=== PATIENT | male | born 1960 | race Caucasian/White ===

== ENCOUNTER 2024-04-12 07:19 | Emergency (ER) | payer MEDICARE ==
[2024-04-12] MEDS ORDERED: KETOROLAC 30 MG/ML INJ ONE (07:44)
[2024-04-12] MEDS ORDERED: ONDANSETRON 4 MG/2 ML VIAL ONE (07:44)
[2024-04-12] MEDS ORDERED: MORPHINE 4 MG/ML SYR ONE (07:44)
[2024-04-12 08:11] LABS: Absolute Basophils 0.1 K/uL (0-0.5); Absolute Eosinophils 0.1 K/uL (0-0.5); Absolute Lymphocytes (CBC) 0.9 K/uL (0.7-4.9); Absolute Monocytes 0.4 K/uL (0.1-1.3); Absolute Neutrophil 5.7 K/uL (1.8-8.0); Basophils % 1.9 % (0-1.3); Hemoglobin 14.4 g/dL (13.6-17.9); Lymphocytes % 11.9 % (15.3-44.8); MCH 29.5 pg (27.0-35.0); MCHC 35.2 g/dL (32.0-36.0); MCV 83.8 fL (80-100); Monocytes % 5.3 % (3.3-12.3); Neutrophils % 79.9 % (41.7-73.7); Nucleated Red Blood Cells % 0.2 % (0-0); Platelets 147 thou/uL (152-406); RBC Red Blood Cell Count 4.88 M/uL (4.33-5.43); Red Cell Distribution Width 14.1 % (12.1-15.2)
[2024-04-12 08:24] LABS: Albumin 4.8 g/dL (3.4-5.0); Albumin/Globulin Ratio 1.5 (1.1-1.8); Anion Gap 7.1 mEq/L (5.0-15.0); Bilirubin Total 0.8 mg/dL (0.2-1.0); Globulin 3.2 g/dL (2.3-3.5); Potassium 4.1 mEq/L (3.5-5.1)
[2024-04-12 08:41] LABS: Specific Gravity 1.015 (1.005-1.030); Sqamous Epithelial <5 /HPF (None Seen); Urine Bacteria None Seen /HPF (<20); Urine Bilirubin NEGATIVE (Negative); Urine Blood Negative (Negative); Urine Clarity Clear (Clear); Urine Color Light-Yellow (Yellow); Urine Culture Reflex Order NOT NEEDED; Urine Glucose NEGATIVE (Negative); Urine Ketones NEGATIVE (Negative); Urine Micro Reflex YN NO BILL MICROSCOPIC; Urine Mucus Slight /HPF (None Seen); Urine Nitrite NEGATIVE (Negative); Urine Protein TRACE (Negative); Urine RBC <5 /HPF (None Seen); Urine Urobilinogen Normal (Normal); Urine WBC <5 /HPF (<5)
--- NOTE | 2024-04-12 09:22 | RAD REPORT ---
EXAMINATION: Abdomen Pelvis Wo Contrast CLINICAL INDICATION: Male, 64 years old. ABD PAIN TECHNIQUE: CT abdomen and pelvis was performed, without IV contrast, as per department protocol. Axia l, sagittal and coronal reconstructions were obtained. One or more of the following dose reduction techniques were used: Automated exposure control, adjustment of the mA and kV according to the patien t size, and iterative reconstruction. Unless otherwise specified, incidental findings do not require dedicated imaging follow-up. COMPARISON: No prior exam. FINDINGS: The lack of intravenous contrast limits the sensitivity of this exam for evaluation of solid visceral organs, vascular structures, and retroperitoneum. LOWER CHEST: The visualized lung bases are clear. LIVER: Normal in size and contour. No focal lesion. BILIARY SYSTEM: No suspicious abnormalities. SPLEEN: Normal size. No focal lesion. PANCREAS: No mass, ductal dilation, or tomeka-pancreatic fluid. ADRENALS: Normal; no mass. KIDNEYS AND URETERS: Normal size and contour. Exophytic left interpolar 8.5 x 7.2 cm cyst with region al wall calcifications inferiorly. No hydronephrosis. URINARY BLADDER: Normal contour. GASTROINTESTINAL TRACT: No evidence of bowel obstruction, significant free fluid, free air or abscess . APPENDIX: Normal appendix. LYMPH NODES: No lymphadenopathy. MUSCULOSKELETAL: No acute or suspicious osseous abnormality. ADDITIONAL FINDINGS: Moderate prostatomegaly. IMPRESSION: No acute or concerning abnormalities in the abdomen or pelvis, with evaluation limited by lack of IV contrast. Left renal 8.5 cm cyst, likely benign in appearance. Moderate prostatomegaly.
--- NOTE | 2024-04-12 09:29 | ER ---
Nurse's Notes [facility] Name: Acosta Mays Age: 64 yrs Sex: Male : 1960 Arrival Date: 04/12/2024 Time: 07:19 Bed 6 Private MD: Diagnosis: Renal Cyst Presentation: 04/12 07:33 Chief complaint: Patient states: he has been having ongoing left kidney pain for ap3 months, however the pain as gotten worse over the last 2 weeks. patient reports the pain is currently a 6/10 on the pain scale. patient denies any nausea or vomiting at this time associated with the pain. Coronavirus screen: At this time, the client does not indicate any symptoms associated with coronavirus-19. Ebola Screen: No symptoms or risks identified at this time. Initial Sepsis Screen: Does the patient meet any 2 criteria? HR > 90 bpm. Does the patient have a suspected source of infection? No. Patient's initial sepsis screen is negative. Risk Assessment: Do you want to hurt yourself or someone else? Patient reports no desire to harm self or others. Onset of symptoms is unknown. 07:33 Method Of Arrival: Ambulatory ap3 07:33 Acuity: BRYCE 3 ap3 Triage Assessment: 07:37 General: Appears in no apparent distress. Behavior is calm, cooperative, appropriate ap3 for age. Pain: Complains of pain in left low back Pain currently is 6 out of 10 on a pain scale. Pain began gradually. Neuro: Level of Consciousness is awake, alert, obeys commands, Oriented to person, place, time, situation, Appropriate for age. Cardiovascular: Patient's skin is warm and dry. Respiratory: Airway is patent Respiratory effort is even, unlabored, Respiratory pattern is regular, symmetrical. : Reports pain in left flank(s). Historical: - Allergies: 07:35 No Known Allergies; ap3 - Home Meds: 07:35 terbinafine HCl 250 mg oral tablet [Active]; atorvastatin 40 mg oral tablet [Active]; ap3 metformin 500 mg Oral tablet [Active]; lisinopril 20 mg Oral tablet [Active]; - PMHx: 07:35 Hypertensive disorder; Diabetes mellitus; ap3 - Immunization history:: Client reports receiving the 2nd dose of the Covid vaccine. - Infectious Disease History:: Denies. - Social history:: Smoking status: Patient denies any tobacco usage or history of. Screenin:38 [facility] ED Fall Risk Assessment (Adult) History of falling in the last 3 months, ap3 including since admission No falls in past 3 months (0 pts) Confusion or Disorientation No (0 pts) Intoxicated or Sedated No (0 pts) Impaired Gait No (0 pts) Mobility Assist Device Used No (0 pt) Altered Elimination No (0 pt) Score/Fall Risk Level 0 - 2 = Low Risk Oriented to surroundings, Maintained a safe environment, Educated pt \T\ family on fall prevention, incl call for assistance when getting out of bed, Assessed \T\ reinforced patient's understanding of fall precautions, Hourly rounding (assess needs \T\ fall precautionary measures) done, Used ambulatory aids as needed (educated on \T\ assisted with), Used gait belt as appropriate. Abuse screen: Denies threats or abuse. Nutritional screening: No deficits noted. Tuberculosis screening: No symptoms or risk factors identified. Assessment: 07:43 General: Appears in no apparent distress. Neuro: No deficits noted. Cardiovascular: No ko1 deficits noted. Respiratory: No deficits noted. GI: No deficits noted. : No deficits noted. EENT: No deficits noted. Derm: No deficits noted. Musculoskeletal: No deficits noted. 07:44 Pain: Complains of pain in left low back. ko1 08:14 General: Appears in no apparent distress. Behavior is calm, cooperative. Pain: mb9 Complains of pain in back Quality of pain is described as throbbing. Neuro: Garcia Agitation-Sedation Scale (RASS): 0 - Alert and Calm Level of Consciousness is awake, alert, obeys commands, Oriented to person, place, time, situation, Appropriate for age. Cardiovascular: Patient's skin is warm and dry. Respiratory: Airway is patent Respiratory effort is even, unlabored, Respiratory pattern is regular, symmetrical. GI: Abdomen is flat, non-distended, Bowel sounds present X 4 quads. Abd is soft and non tender X 4 quads. : Reports urinary frequency. EENT: No signs and/or symptoms were reported regarding the EENT system. Derm: Skin is pink, warm \T\ dry. Musculoskeletal: Range of motion: intact in all extremities. Vital Signs: 07:33 BP 168 / 92; Pulse 93; Resp 17; Temp 98.1; Pulse Ox 100% ; Weight 85.28 kg; Height 5 ap3 ft. 10 in. ; Pain 6/10; 07:44 BP 177 / 89; Pulse 91; Resp 16; Pulse Ox 100% ; ko1 08:43 BP 123 / 70; Pulse 74; Resp 16; Pulse Ox 98% on R/A; mb9 07:33 Body Mass Index 26.97 (85.28 kg, 177.8 cm) ap3 07:33 Pain Scale: Adult ap3 ED Course: 07:21 Patient arrived in ED. ec2 07:21 Nuno Spaulding MD is Attending Physician. ec2 07:31 Mary Epperson, RN is Primary Nurse. ko1 07:35 Triage completed. ap3 07:38 Arm band placed on right wrist. ap3 07:44 Patient has correct armband on for positive identification. Bed in low position. Call ko1 light in reach. Side rails up X 1. Provided Education on: call light, labs, meds. Client placed on continuous cardiac and pulse oximetry monitoring. NIBP monitoring applied. groundwater monitoring technician on. Door closed. Noise minimized. Lights dimmed. Warm blanket given. Pillow given. 07:44 No provider procedures requiring assistance completed. ko1 08:00 Primary Nurse role handed off by Mary Epperson, JACINTO mb9 08:00 Echo Wu, JACINTO is Primary Nurse. mb9 08:00 Initial lab(s) drawn, by il, sent to lab. Inserted saline lock: 20 gauge in right mb9 antecubital area, using aseptic technique. Blood collected. Flushed with 10 mL NS. 08:14 CBC with Diff Sent. mb9 08:14 CMP Sent. mb9 08:14 Lipase Sent. mb9 08:21 CT Abd/Pelvis - Without Contrast In Process Unspecified. EDMS 09:29 Matthias Salgado MD is Referral Physician. ec2 09:41 IV discontinued, intact, bleeding controlled, No redness/swelling at site. Pressure mb9 dressing applied. Administered Medications: 07:45 Drug: Ondansetron IVP 4 mg IVP once; over 2 minutes Route: IVP; Site: right antecubital;mb9 08:49 Follow up: Response: No adverse reaction mb9 07:48 Drug: TORadol - Ketorolac IVP 15 mg IVP once Route: IVP; Site: right antecubital; mb9 08:49 Follow up: Response: No adverse reaction mb9 07:50 Drug: morphine IVP or IV 4 mg IVP once over 4 mins Route: IVP; Infused Over: 4 mins; mb9 Site: right antecubital; 08:49 Follow up: Response: No adverse reaction mb9 Medication: 08:16 VIS not applicable for this client. mb9 Outcome: 09:29 Discharge ordered by . ec2 09:41 Discharged to home ambulatory, mb9 09:41 Condition: stable 09:41 Discharge instructions given to patient, Instructed on discharge instructions, follow up and referral plans. Demonstrated understanding of instructions, follow-up care, 09:42 Patient left the ED. mb9 Signatures: Dispatcher [employer] Shanti Arredondo RN RN ap3 Mary Epperson RN RN ko1 Echo Wu RN RN mb9 Nuno Spaulding MD MD ec2 Corrections: (The following items were deleted from the chart) 07:45 07:43 Musculoskeletal: No deficits noted. ko1 ko1
--- NOTE | 2024-04-12 09:29 | EDPHYS ---
Physician Documentation [facility] Name: Acosta Mays Age: 64 yrs Sex: Male : 1960 Arrival Date: 04/12/2024 Time: 07:19 Bed 6 Private MD: ED Physician Nuno Spaulding HPI: 04/12 07:39 This 64 yrs old Male presents to ER via Ambulatory with complaints of Flank ec2 Pain, Urinary Problem. 07:39 Patient arrives today for evaluation of left-sided flank pain. Patient reports several ec2 months of flank pain, worsening over the past several days. Patient reports no fevers or chills, denies vomiting. Patient reports no specific urinary complaints. External records show that patient had previous ultrasonography that showed a 9.x cm calcification. Patient was told to follow-up for this. Patient has not establish follow-up at this time.. Historical: - Allergies: 07:35 No Known Allergies; ap3 - Home Meds: 07:35 terbinafine HCl 250 mg oral tablet [Active]; atorvastatin 40 mg oral tablet [Active]; ap3 metformin 500 mg Oral tablet [Active]; lisinopril 20 mg Oral tablet [Active]; - PMHx: 07:35 Hypertensive disorder; Diabetes mellitus; ap3 - Immunization history:: Client reports receiving the 2nd dose of the Covid vaccine. - Infectious Disease History:: Denies. - Social history:: Smoking status: Patient denies any tobacco usage or history of. ROS: 07:39 Constitutional: as per hpi ec2 Exam: 07:39 Constitutional: GEN: NAD Head: atraumatic Eyes: EOMI Ears: External ears are ec2 normal. CV: regular rate LUNGS: no respiratory distress ABD: non-distended, soft, minimal TTP to the left flank. Not guarding, not rigid SKIN: no evidence of rashes MSK: no evidence of trauma Vital Signs: 07:33 BP 168 / 92; Pulse 93; Resp 17; Temp 98.1; Pulse Ox 100% ; Weight 85.28 kg; Height 5 ap3 ft. 10 in. ; Pain 6/10; 07:44 BP 177 / 89; Pulse 91; Resp 16; Pulse Ox 100% ; ko1 08:43 BP 123 / 70; Pulse 74; Resp 16; Pulse Ox 98% on R/A; mb9 07:33 Body Mass Index 26.97 (85.28 kg, 177.8 cm) ap3 07:33 Pain Scale: Adult ap3 MDM: 07:29 Patient medically screened. ec2 07:39 Data reviewed: vital signs. ED course: Patient arrives today for evaluation of left ec2 flank pain. Examination remarkable for abdominal findings as above. Will obtain lab work, CT imaging and treat the patient's pain. Evaluating for processes such as ureteral stone, renal calcification, obstruction. 08:29 ED course: CBC is reassuring. Metabolic profile with appropriate electrolytes, ec2 diminished renal function with a creatinine of 1.37 and a GFR 57. Lipase within normal ranges. . 09:28 ED course: CT abdomen pelvis shows no acute intra-abdominal process, does show a 0.5 cm ec2 cyst, this is known per patient. On reassessment patient is well-appearing no acute distress. Will discharge home at the patient follow-up with urology. Return precautions given peer. 04/12 07:39 Order name: CBC with Diff; Complete Time: 08:29 ec2 04/12 07:39 Order name: CMP; Complete Time: 08:29 ec2 04/12 07:39 Order name: Lipase; Complete Time: 08:29 ec2 04/12 08:29 Order name: UAM; Complete Time: 08:45 ec2 04/12 07:39 Order name: CT Abd/Pelvis - Without Contrast; Complete Time: 09:28 ec2 04/12 07:39 Order name: IV Saline Lock; Complete Time: 08:14 ec2 04/12 07:39 Order name: Labs collected and sent; Complete Time: 08:14 ec2 Administered Medications: 07:45 Drug: Ondansetron IVP 4 mg IVP once; over 2 minutes Route: IVP; Site: right antecubital;mb9 08:49 Follow up: Response: No adverse reaction mb9 07:48 Drug: TORadol - Ketorolac IVP 15 mg IVP once Route: IVP; Site: right antecubital; mb9 08:49 Follow up: Response: No adverse reaction mb9 07:50 Drug: morphine IVP or IV 4 mg IVP once over 4 mins Route: IVP; Infused Over: 4 mins; mb9 Site: right antecubital; 08:49 Follow up: Response: No adverse reaction mb9 Disposition Summary: 04/12/24 09:29 Discharge Ordered Notes: Location: Home ec2 Condition: Stable ec2 Diagnosis - Renal Cyst ec2 Followup: ec2 - With: Matthias Salgado MD - When: - Reason: Recheck today's complaints Discharge Instructions: - Discharge Summary Sheet ec2 - Flank Pain, Adult, Endr-jt-[id number] ec2 Forms: - Medication Reconciliation Form ec2 - Antibiotic Education ec2 - Prescription Opioid Use ec2 - Patient Portal Instructions ec2 - Leadership Thank You Letter ec2 Signatures: Dispatcher [employer] EDShanti Kendrick RN RN ap3 Echo Wu RN RN mb9 Nuno Spaulding MD MD ec2 Corrections: (The following items were deleted from the chart) 07:39 07:39 CBC+H.LAB.BRZ ordered. EDMS EDMS 07:39 07:39 COMPREHENSIVE METABOLIC PANEL+C.LAB.BRZ ordered. EDMS EDMS 07:39 07:39 LIPASE+C.LAB.BRZ ordered. EDMS EDMS 07:39 07:39 Abdomen Pelvis Wo Con+CT.RAD.BRZ ordered. EDMS EDMS
[2024-04-12 13:54] VITALS: TEMP 98.1
[2024-04-12 14:06] VITALS: BP 123/70; O2SAT 98
== END 2024-04-12 09:42 | disposition home or self-care (01) ==
LOC: ER 07:19
DX: N28.1 Cyst of kidney, acquired (principal); E11.9 Type 2 diabetes mellitus without complications; I10 Essential (primary) hypertension
CPT/HCPCS: 85025; 81001; 36415; 83690; 80053; 74176; 96375; 96374; 99285; J2405